=== PATIENT | female | born 1935 | race Caucasian/White ===

== ENCOUNTER 2017-07-26 10:52 | Observation (INO) | payer MEDICARE, OTHER ==
[2017-07-26] MEDS ORDERED: Aspirin 81 MG Tab.Chew PO ONE (10:58)
[2017-07-26] MEDS ORDERED: Sodium Chloride 0.9% 10 ML Syringe FLUSH PRN (10:58)
[2017-07-26] MEDS ORDERED: Sodium Chloride 0.9% 2.5 ML Syringe FLUSH PRN (10:58)
--- NOTE | 2017-07-26 11:01 | EDM.PDOC ---
ED HPI GENERAL MEDICAL PROBLEM - General Chief Complaint: Chest Pain Stated Complaint: CHEST PAIN Time Seen by Provider: 07/26/17 10:57 - History of Present Illness INITIAL COMMENTS - FREE TEXT/NARRATIVE: HISTORY AND PHYSICAL: History of present illness: The patient is an 82-year-old female who does not have a provider and last saw physician 15 or 16 years ago and presents with complaints of upper sternal chest pain that has been episodic over the last 1 week. She says that it will calm and last for only a few minutes and then go away and she will have only several episodes a day. It does not wake her from sleep and the pain does not radiate to her job back or her left arm. There is no associated diaphoresis or shortness of breath and she has not had any upper respiratory symptoms. She is eating and drinking normally and has no abdominal complaints. When asked why the patient decided to come in today she said that it was just too bad and she wanted evaluation. She said the pain was much stronger earlier this morning and currently she rates it as a 1/10 patient took no medication for this discomfort. Patient denies any recent trauma and does state that she is a tobacco user. She has no known cardiac or pulmonary disease and has no leg pain or swelling. Review of systems: As per history of present illness and below otherwise all systems reviewed and negative. Past medical history: As per history of present illness and as reviewed below otherwise noncontributory. Surgical history: As per history of present illness and as reviewed below otherwise noncontributory. Social history: No reported history of drug or alcohol abuse. Family history: As per history of present illness and as reviewed below otherwise noncontributory. Physical exam: Gen.: Well-developed well-nourished female who is nontoxic and vital signs been reviewed by me HEENT: Atraumatic, normocephalic, pupils reactive, negative for conjunctival pallor or scleral icterus, mucous membranes moist, throat clear, neck supple, nontender, trachea midline. Lungs: Clear to auscultation, breath sounds equal bilaterally, chest with mild tenderness at the upper portion of the sternum without defects deformities swelling or soft tissue injury Heart: S1S2, regular, negative for clicks, rubs, or JVD. Abdomen: Soft, nondistended, nontender. Negative for masses or hepatosplenomegaly. Negative for costovertebral tenderness. Pelvis: Stable nontender. Genitourinary: Deferred. Rectal: Deferred. Extremities: Atraumatic, negative for cords or calf pain. Neurovascular unremarkable. No pedal edema or leg asymmetry Neuro: Awake, alert, oriented. Cranial nerves II through XII unremarkable. Cerebellum unremarkable. Motor and sensory unremarkable throughout. Exam nonfocal. Diagnostics: EKG chest x-ray CBC CMP INR troponin Therapeutics: IV O2 monitor aspirin NTG paste Currently the patient feels asymptomatic and I discussed with her her and her daughter at bedside all testing results. I've advised observation admission for a cardiac rule out as well as management of her blood pressure elevation. Initially the patient was not willing to stay but after discussion with the family she is now agreeable. I will discuss this case with the hospitalist [id number]: Case was discussed with Dr. Ravi who accepts the patient for admission and would like lisinopril 10 mg by mouth to be given. Impression: Chest pain rule out ACS, hypertension Definitive disposition and diagnosis as appropriate pending reevaluation and review of above. chest Pain Score (Numeric/FACES): 1 - Related Data Allergies Allergy/AdvReac Type Severity Reaction Status Date / Time No Known Allergies Allergy Verified 07/26/17 10:54 Home Meds: Home Meds . [No Known Home Meds] 07/26/17 [History] ED ROS GENERAL - Review of Systems Review Of Systems: ROS reveals no pertinent complaints other than HPI. ED EXAM, GENERAL - Physical Exam Exam: See Below (see dictation) Course - Vital Signs Last Recorded V/S: Last Vital Signs Temp 36.6 C 07/26/17 10:52 Pulse 62 07/26/17 12:07 Resp 15 07/26/17 12:07 BP 192/86 H 07/26/17 12:07 Pulse Ox 96 07/26/17 12:07 - Orders/Labs/Meds Orders: Active Orders 24 hr Category Date Time Status Patient Status [ADT] Stat ADT 07/26/17 12:12 Ordered Cardiac Monitoring [RC] . DIRECTED Care 07/26/17 10:58 Active EKG Documentation Completion [RC] STAT Care 07/26/17 10:58 Active Oxygen Therapy, ED [RC] ASDIRECTED Care 07/26/17 10:58 Active Pulse Oximetry [RC] ASDIRECTED Care 07/26/17 10:58 Active Chest 1V Frontal [CR] Stat Exams 07/26/17 10:58 Taken Lisinopril [Prinivil] Med 07/26/17 12:12 Once 10 mg PO ONETIME ONE Sodium Chloride 0.9% [Saline Flush] Med 07/26/17 10:58 Active 10 ml FLUSH ASDIRECTED PRN Sodium Chloride 0.9% [Saline Flush] Med 07/26/17 10:58 Active 2.5 ml FLUSH ASDIRECTED PRN Saline Lock Insert [OM.PC] Stat Oth 07/26/17 10:58 Ordered Medication Orders Sodium Chloride (Saline Flush) 10 ml FLUSH ASDIRECTED PRN PRN Reason: Keep Vein Open Last Admin: 07/26/17 11:16 Dose: 10 ml Sodium Chloride (Saline Flush) 2.5 ml FLUSH ASDIRECTED PRN PRN Reason: Keep Vein Open Last Admin: 07/26/17 11:16 Dose: 2.5 ml Labs: Laboratory Tests 07/26/17 07/26/17 07/26/17 Range/Units 11:00 11:00 11:00 WBC 6.40 (4.0-11.0) K/uL RBC 4.41 (4.30-5.90) M/uL Hgb 13.2 (12.0-16.0) g/dL Hct 40.0 (36.0-46.0) % MCV 90.7 (80.0-98.0) fL MCH 29.9 (27.0-32.0) pg MCHC 33.0 (31.0-37.0) g/dL RDW Std Deviation 44.5 (28.0-62.0) fl RDW Coeff of Augustin 13 (11.0-15.0) % Plt Count 271 (150-400) K/uL MPV 9.90 (7.40-12.00) fL Neut % (Auto) 58.1 (48.0-80.0) % Lymph % (Auto) 35.9 (16.0-40.0) % [place] % (Auto) 5.2 (0.0-15.0) % Eos % (Auto) 0.5 (0.0-7.0) % Baso % (Auto) 0.3 (0.0-1.5) % Neut # (Auto) 3.7 (1.4-5.7) K/uL Lymph # (Auto) 2.3 (0.6-2.4) K/uL [place] # (Auto) 0.3 (0.0-0.8) K/uL Eos # (Auto) 0.0 (0.0-0.7) K/uL Baso # (Auto) 0.0 (0.0-0.1) K/uL Nucleated RBC % 0.0 /100WBC Nucleated RBCs # 0 K/uL INR 0.99 (0.86-1.11) Sodium 141 (136-146) mmol/L Potassium 4.3 (3.5-5.1) mmol/L Chloride 108 (98-110) mmol/L Carbon Dioxide 21 (21-31) mmol/L BUN 18 (6.0-23.0) mg/dL Creatinine 0.9 (0.6-1.5) mg/dL Est Cr Clr Drug Dosing TNP Estimated GFR (MDRD) > 60.0 ml/min Glucose 101 (60-110) mg/dL Calcium 10.1 (8.8-10.8) mg/dL Total Bilirubin 0.7 (0.1-1.5) mg/dL AST 19 (5-40) IU/L ALT 6 L (8-54) IU/L Alkaline Phosphatase 85 (40-150) Troponin I (0.0-0.29) NG/ML Total Protein 7.6 (6.0-8.0) g/dL Albumin 4.3 (3.4-4.8) g/dL Globulin 3.3 (2.0-3.5) g/dL Albumin/Globulin Ratio 1.3 (1.3-2.8) 07/26/17 Range/Units 11:00 WBC (4.0-11.0) K/uL RBC (4.30-5.90) M/uL Hgb (12.0-16.0) g/dL Hct (36.0-46.0) % MCV (80.0-98.0) fL MCH (27.0-32.0) pg MCHC (31.0-37.0) g/dL RDW Std Deviation (28.0-62.0) fl RDW Coeff of Augustin (11.0-15.0) % Plt Count (150-400) K/uL MPV (7.40-12.00) fL Neut % (Auto) (48.0-80.0) % Lymph % (Auto) (16.0-40.0) % [place] % (Auto) (0.0-15.0) % Eos % (Auto) (0.0-7.0) % Baso % (Auto) (0.0-1.5) % Neut # (Auto) (1.4-5.7) K/uL Lymph # (Auto) (0.6-2.4) K/uL [place] # (Auto) (0.0-0.8) K/uL Eos # (Auto) (0.0-0.7) K/uL Baso # (Auto) (0.0-0.1) K/uL Nucleated RBC % /100WBC Nucleated RBCs # K/uL INR (0.86-1.11) Sodium (136-146) mmol/L Potassium (3.5-5.1) mmol/L Chloride (98-110) mmol/L Carbon Dioxide (21-31) mmol/L BUN (6.0-23.0) mg/dL Creatinine (0.6-1.5) mg/dL Est Cr Clr Drug Dosing Estimated GFR (MDRD) ml/min Glucose (60-110) mg/dL Calcium (8.8-10.8) mg/dL Total Bilirubin (0.1-1.5) mg/dL AST (5-40) IU/L ALT (8-54) IU/L Alkaline Phosphatase (40-150) Troponin I < 0.10 (0.0-0.29) NG/ML Total Protein (6.0-8.0) g/dL Albumin (3.4-4.8) g/dL Globulin (2.0-3.5) g/dL Albumin/Globulin Ratio (1.3-2.8) Meds: Medications Generic Name Dose Route Start Last Admin Trade Name Freq PRN Reason Stop Dose Admin Sodium Chloride 10 ml 07/26/17 10:58 07/26/17 11:16 Saline Flush FLUSH 10 ml ASDIRECTED PRN Administration Keep Vein Open Sodium Chloride 2.5 ml 07/26/17 10:58 07/26/17 11:16 Saline Flush FLUSH 2.5 ml ASDIRECTED PRN Administration Keep Vein Open Discontinued Medications Generic Name Dose Route Start Last Admin Trade Name Rosalina PRN Reason Stop Dose Admin Aspirin 324 mg 07/26/17 10:58 07/26/17 11:14 Aspirin PO 07/26/17 10:59 324 mg ONETIME ONE Administration Nitroglycerin 0.5 gm 07/26/17 11:02 07/26/17 11:14 Nitro-Bid 2% TOP 07/26/17 11:03 0.5 gm ONETIME ONE Administration Departure - Departure Time of Disposition: 12:07 Disposition: Refer to Observation Condition: Good Clinical Impression: Acute coronary syndrome Chest pain Qualifiers: Chest pain type: other chest pain Qualified Code(s): R07.89 - Other chest pain Hypertension Qualifiers: Hypertension type: unspecified Qualified Code(s): I10 - Essential (primary) hypertension - Discharge Information Referrals: Jose Rowland MD [Primary Care Provider] - Forms: ED Department Discharge - My Orders Last 24 Hours: My Active Orders 07/26/17 10:58 Cardiac Monitoring [RC] . DIRECTED EKG Documentation Completion [RC] STAT Oxygen Therapy, ED [RC] ASDIRECTED Pulse Oximetry [RC] ASDIRECTED Chest 1V Frontal [CR] Stat Sodium Chloride 0.9% [Saline Flush] 10 ml FLUSH ASDIRECTED PRN Sodium Chloride 0.9% [Saline Flush] 2.5 ml FLUSH ASDIRECTED PRN Saline Lock Insert [OM.PC] Stat 07/26/17 12:12 Patient Status [ADT] Stat Lisinopril [Prinivil] 10 mg PO ONETIME ONE - Assessment/Plan Last 24 Hours: My Active Orders 07/26/17 10:58 Cardiac Monitoring [RC] . DIRECTED EKG Documentation Completion [RC] STAT Oxygen Therapy, ED [RC] ASDIRECTED Pulse Oximetry [RC] ASDIRECTED Chest 1V Frontal [CR] Stat Sodium Chloride 0.9% [Saline Flush] 10 ml FLUSH ASDIRECTED PRN Sodium Chloride 0.9% [Saline Flush] 2.5 ml FLUSH ASDIRECTED PRN Saline Lock Insert [OM.PC] Stat 07/26/17 12:12 Patient Status [ADT] Stat Lisinopril [Prinivil] 10 mg PO ONETIME ONE
[2017-07-26] MEDS ORDERED: Nitroglycerin 2% Oint 1 GM UD Packet TOP ONE (11:02)
[2017-07-26 11:38] LABS: CHLORIDE,CL 108 mmol/L (98-110); SODIUM,NA 141 mmol/L (136-146)
[2017-07-26] MEDS ORDERED: Lisinopril 10 MG Tab PO ONE (12:12)
--- NOTE | 2017-07-26 19:19 | PCM.HP ---
H&P History of Present Illness - General Admit Problem/Dx: Admission Diagnosis/Problem Admission Diagnosis/Problem Acute coronary syndrome - History of Present Illness Initial Comments - Free Text/Narative: 82 yo female smoker who presents with substernal chest pain. It lasted several hours but resolved prior to being seen in the ED. She denied any associated symptoms of shortness of breath, diaphoresis, or cough. Blood pressure was noted to be in the 200s systolic. She was given nitropaste in the ED and lisinopril 10mg PO. Inital EKG and cardiac enzymes did not show signs of acute ischemia. chest Pain Score (Numeric/FACES): 1 - Related Data Allergies/Adverse Reactions: Allergies Allergy/AdvReac Type Severity Reaction Status Date / Time No Known Allergies Allergy Verified 07/26/17 10:54 Home Medications: Home Meds Lisinopril [Prinivil] 20 mg PO DAILY #30 tablet 07/27/17 [Rx] Past Medical History - Past Health History Medical/Surgical History: Denies Medical/Surgical History HEENT History: Reports: Impaired Vision Other HEENT History: wears glasses [employer] History: Reports: Social & Family History - Family History Family Medical History: Noncontributory - Tobacco Use Smoking Status *Q: Current Every Day Smoker Years of Tobacco use: 1 Packs/Tins Daily: 1 - Caffeine Use Caffeine Use: Reports: Coffee - Recreational Drug Use Recreational Drug Use: No H&P Review of Systems - Review of Systems: Review Of Systems: ROS reveals no pertinent complaints other than HPI. Exam - Exam Exam: See Below - Vital Signs Vital Signs: Last Vital Signs Temp 36.8 C 07/26/17 16:00 Pulse 85 07/26/17 16:00 Resp 18 07/26/17 16:00 BP 167/72 H 07/26/17 16:00 Pulse Ox 100 07/26/17 16:00 Weight: 56 kg - Exam General: Alert, Oriented, 4 HEENT: Mucosa Moist & [place] Neck: Supple, Trachea Midline, 2 Lungs: Clear to Auscultation, Normal Respiratory Effort Cardiovascular: Regular Rate, Regular Rhythm GI/Abdominal Exam: Normal Bowel Sounds, Soft, No Distention Extremities: Normal Inspection, Non-Tender, No Pedal Edema Skin: Warm, Dry, Intact Neurological: No: Focal Deficit - Patient Data Lab Results Last 24 hrs: Laboratory Results - last 24 hr 07/26/17 Range/Units 16:54 Troponin I < 0.10 (0.0-0.29) NG/ML Result Diagrams: 07/26/17 11:00 07/26/17 11:00 EKG INTERPRETATION Rhythm: NSR Rate (Beats/Min): 84 P-Wave: Present QRS: Normal ST-T: Normal *Q Meaningful Use (ADM) - VTE *Q VTE Criteria *Q: - Stroke *Q Stroke Criteria *Q: - AMI *Q AMI Criteria *Q: Problem List Initiated/Reviewed/Updated: Yes Orders Last 24hrs: Active Orders 24 hr Category Date Time Status Antiembolic Devices [RC] PER UNIT ROUTINE Care 07/26/17 19:13 Ordered Communication Order [RC] ROUTINE Care 07/26/17 13:01 Active Oxygen Therapy [RC] PRN Care 07/26/17 19:11 Ordered Telemetry Monitoring [Cardiac Monitoring] [RC] . Care 07/26/17 13:00 Active DIRECTED Up ad Trina [RC] ASDIRECTED Care 07/26/17 19:11 Ordered VTE/DVT Education [RC] PER UNIT ROUTINE Care 07/26/17 19:11 Ordered Vital Signs [RC] Q4H Care 07/26/17 19:11 Ordered Heart Healthy Diet [DIET] Diet 07/26/17 Lunch Active TROPONIN I [CHEM] Q6H Lab 07/26/17 23:00 Ordered Sequential Compression Device [OM.PC] Per Unit Routine Oth 07/26/17 19:13 Ordered Resuscitation Status Routine Resus Stat 07/26/17 19:11 Ordered Medication Orders Sodium Chloride (Saline Flush) 10 ml FLUSH ASDIRECTED PRN PRN Reason: Keep Vein Open Last Admin: 07/26/17 11:16 Dose: 10 ml Sodium Chloride (Saline Flush) 2.5 ml FLUSH ASDIRECTED PRN PRN Reason: Keep Vein Open Last Admin: 07/26/17 11:16 Dose: 2.5 ml Assessment/Plan Comment:: 82 yo female admitted with chest pain. She was monitored overnight on telemetry with no events and no return of chest pain. She ruled out for acute chest pain with serial negative cardiac enzymes. This morning patient is requesting discharge. She was referred to [facility] as well as outpatient cardiac stress test. She was discharged home with prescription of lisinopril 20 mg daily as her blood pressure was noted to be elevated during her stay.
[2017-07-27 08:23] VITALS: BP 136/64
--- NOTE | 2017-07-27 18:35 | CR ---
EXAM DATE: 07/26/17 PATIENT'S AGE: 82 Patient: [facility] Facility: [place], [place] Site . Site : [id number] Study: XRay Chest [id number]/4/2017 11:24:52 AM Ordering Physician: Doctor Franklin Final Report: INDICATION: Chest pain and shortness of breath. TECHNIQUE: Chest 1 view. COMPARISON: None FINDINGS: CARDIOVASCULATURE AND MEDIASTINUM: Heart size and vasculature are normal in caliber and appearance. Mediastinum is within normal limits. LUNGS AND PLEURAL SPACE: There are linear markings in both lung bases. Remainder of the lungs and pleural spaces are clear. No pneumothorax. BONES AND SOFT TISSUES: No significant findings. IMPRESSION: Suspected chronic scarring favored over atelectasis in the lower lungs. No convincing evidence for pneumonia or other acute abnormality. Dictated by Vance Jorgensen MD @ 07/26/2017 11:44:38 AM Dictated by: Vance Jorgensen MD @ 07/26/2017 11:44:45 (Electronic Signature) Report Signed by Proxy. [facility]
== END 2017-07-27 08:10 | disposition home or self-care (01) ==
LOC: MW.ED 10:52 → MW.MS 12:12
PROVIDERS: ADMIT Internal Medicine; ATTEND Internal Medicine
DX: R07.2 Precordial pain (principal); R03.0 Elevated blood-pressure reading, without diagnosis of hypertension; F17.210 Nicotine dependence, cigarettes, uncomplicated
CPT/HCPCS: 36415; 71010; 80053; 84484; 85025; 85610; 93005; 99285; A9270; G0378; 99283